=== PATIENT | male | born 1945 | race Caucasian/White ===

== ENCOUNTER 2024-08-18 14:49 | Inpatient (IN) | payer OTHER ==
[~2024-08-18] VITALS: Ht 167.6 cm; Wt 51.3 kg
[2024-08-18 15:44] LABS: BASOPHILS % (AUTO) 0.4 % (0.0-2.0); EOSINOPHILS % (AUTO) 1.5 % (0.0-6.0); HEMATOCRIT 31 % (39-51); HEMOGLOBIN 10.4 g/dL (13.5-17.5); LYMPHOCYTES # (AUTO) 1.2 K/uL (0.8-4.8); MEAN CORPUSCULAR HEMOGLOBIN 31 PG (26.0-33.0); MEAN CORPUSCULAR HGB CONC 33 g/dl (31.0-36.0); MEAN CORPUSCULAR VOLUME 93 fL (80-96); MONOCYTES # (AUTO) 0.6 K/uL (0.1-1.30); MONOCYTES % (AUTO) 7.5 % (2.0-12.0); NEUTROPHILS % (AUTO) 75.6 % (43.0-81.0); PLATELET COUNT (AUTO) 281 K/uL (150-450); RED BLOOD CELL COUNT(AUTO) 3.39 MIL/uL (4.5-6.0)
[2024-08-18 15:45] LABS: EOSINOPHILS # (AUTO) 0.1 K/uL (0.0-0.7)
[2024-08-18 16:00] LABS: APPEARANCE,URINE TURBID (CLEAR); BILIRUBIN,URINE NEGATIVE (NEGATIVE); BLOOD, URINE 1+ Ery/uL (NEGATIVE); COLOR,URINE YELLOW (YELLOW); KETONES,URINE NEGATIVE (NEGATIVE); LEUKOCYTE ESTERASE ,URINE 3+ (NEGATIVE); NITRITE, URINE NEGATIVE (NEGATIVE); PH,URINE 8.5 (5.0-8.0); PROTEIN,URINE 2+ mg/dl (NEGATIVE); UGLUCOSE NEGATIVE (NEGATIVE); UROBILINOGEN,URINE 0.2 EU/dL (0.2)
[2024-08-18 16:01] LABS: CARBON DIOXIDE 34 mmol/L (21-32); CHLORIDE 105 mmol/L (98-107); CREATININE 1.4 mg/dL (0.6-1.3); GLUCOSE 105 mg/dL (74-106); POTASSIUM 4.3 mmol/L (3.5-5.1); SODIUM SERUM 140 mmol/L (136-145); UREA NITROGEN, BLOOD 45 mg/dL (7-18)
[2024-08-18 16:06] LABS: ACETAMINOPHEN <10 ug/ml (10-30); SALICYLATE 1.9 mg/dL (2.8-20.0)
[2024-08-18 16:16] LABS: AMPHETAMINE, URINE NEGATIVE (NEGATIVE); BARBITURATE, URINE NEGATIVE (NEGATIVE); BENZODIAZEPINE, URINE NEGATIVE (NEGATIVE); CANNABINOID, URINE NEGATIVE (NEGATIVE); COCCAINE, URINE NEGATIVE (NEGATIVE); OPIATE, URINE NEGATIVE (NEGATIVE); PHENCYCLIDINE SCREEN,URINE NEGATIVE (NEGATIVE)
[2024-08-18 16:22] LABS: ADD URINE CULTURE YES; BACTERIA,URINE 2+ /HPF (None Seen); SQUAMOUS EPITHELIAL CELL,UR None Seen /HPF (None Seen); TRIPLE PHOSPHATE CRYSTAL,UR Few /HPF (None Seen)
[2024-08-18] MEDS ORDERED: ASCO-352 PO (18:07)
[2024-08-18] MEDS ORDERED: CHOL100043 PO (18:07)
[2024-08-18] MEDS ORDERED: FOLI0.8T3 PO (18:07)
[2024-08-18] MEDS ORDERED: SENN8.6T19 PO (18:07)
[2024-08-18] MEDS ORDERED: TIOT18CA3 IH (18:07)
[2024-08-18] MEDS ORDERED: DOCU100C36 PO (18:07)
[2024-08-18] MEDS ORDERED: METH10SO PO (18:07)
[2024-08-18] MEDS ORDERED: NA P133E RC (18:07)
[2024-08-18] MEDS ORDERED: MULT-213 PO (18:07)
[2024-08-18] MEDS ORDERED: AMIN30LI2 PO (18:07)
[2024-08-18] MEDS ORDERED: BOOST VHC PO (18:07)
[2024-08-18] MEDS ORDERED: ACET325T53 PO (18:07)
[2024-08-18] MEDS ORDERED: MAGN400O6 PO (18:07)
[2024-08-18] MEDS ORDERED: BISA10SU11 RC (18:07)
[2024-08-18] MEDS ORDERED: ALBU90AE IH (18:07)
[2024-08-18] MEDS ORDERED: POLY17PO4 PO (18:07)
[2024-08-18] MEDS ORDERED: ONDANSETRON HCL/PF 4 MG/2 ML VIAL IVP PRN (22:00)
[2024-08-18] MEDS ORDERED: MAG HYDROX/AL HYDROX/SIMETH 30 ML UDC PO PRN (22:00)
[2024-08-19 02:25] VITALS: BP 141/89; TEMP 98.2; O2SAT 99
[2024-08-19] MEDS: SENNOSIDES 8.6 MG TABLET PO SCH (04:07)
[2024-08-19] MEDS ORDERED: CEFTRIAXONE 1GM BAG (ER ONLY) 50 ML IV ONE (04:27)
[2024-08-19] MEDS: CEFTRIAXONE 1 G in IV D5W 50 ML IV SCH (05:30)
[2024-08-19 08:00] VITALS: BP 124/86; TEMP 98.4; O2SAT 99
[2024-08-19] MEDS: PANTOPRAZOLE 40 MG TABLET.DR PO SCH (08:29)
[2024-08-19] MEDS: POLYETHYLENE GLYCOL 3350 17 GM POWD.PACK PO SCH (09:16)
[2024-08-19] MEDS: MULTIVIT W/MINERALS 1 TAB TABLET PO SCH (09:16)
[2024-08-19] MEDS: FOLIC ACID 1 MG TABLET PO SCH (09:16)
[2024-08-19] MEDS: DOCUSATE SODIUM 100 MG CAPSULE PO SCH (09:16)
[2024-08-19] MEDS: CHOLECALCIFEROL 1,000 UNIT TABLET (VIT D3) PO SCH (09:17)
[2024-08-19] MEDS: ASCORBIC ACID 500 MG TABLET PO SCH (09:17)
[2024-08-19] MEDS: PROSOURCE / PROSTAT (PYXIS) 30 ML UDC PO SCH (09:20)
[2024-08-19] MEDS: ACETAMINOPHEN 325 MG TABLET PO PRN (10:03)
[2024-08-19] MEDS: LORAZEPAM INJ 2 MG/ML VIAL IV PRN (15:21)
[2024-08-19 16:00] VITALS: BP 120/75; TEMP 98.4; O2SAT 99
[2024-08-19 16:37] LABS: BASOPHILS % (AUTO) 0.5 % (0.0-2.0); EOSINOPHILS # (AUTO) 0.1 K/uL (0.0-0.7); EOSINOPHILS % (AUTO) 1.1 % (0.0-6.0); HEMATOCRIT 32 % (39-51); HEMOGLOBIN 10.5 g/dL (13.5-17.5); LYMPHOCYTES # (AUTO) 1.2 K/uL (0.8-4.8); MEAN CORPUSCULAR HEMOGLOBIN 31 PG (26.0-33.0); MEAN CORPUSCULAR HGB CONC 33 g/dl (31.0-36.0); MEAN CORPUSCULAR VOLUME 94 fL (80-96); MONOCYTES # (AUTO) 0.6 K/uL (0.1-1.30); MONOCYTES % (AUTO) 7.1 % (2.0-12.0); NEUTROPHILS # (AUTO) 6.5 K/uL (1.8-8.9); NEUTROPHILS % (AUTO) 77.3 % (43.0-81.0); RED BLOOD CELL COUNT(AUTO) 3.39 MIL/uL (4.5-6.0); RED CELL DISTRIBUTION WIDTH 15.6 % (11.5-15.0); WHITE BLOOD COUNT (AUTO) 8.4 K/uL (4.3-11.0)
[2024-08-19 16:43] LABS: CALCIUM, SERUM 8.6 mg/dL (8.5-10.1); CREATININE 1.3 mg/dL (0.6-1.3); MAGNESIUM 2.3 mg/dL (1.8-2.4); PHOSPHORUS 4.1 mg/dL (2.5-4.9); POTASSIUM 4.4 mmol/L (3.5-5.1)
[2024-08-19 17:02] LABS: PLATELET COUNT (AUTO) 265 K/uL (150-450)
[2024-08-19 17:52] LABS: ALANINE AMINOTRANSFERASE < 6 U/L (12-78); ALBUMIN 2.3 g/dL (3.4-5.0); ALKALINE PHOSPHATASE 56 U/L (46-116); ASPARTATE AMINOTRANSFERASE 14 U/L (15-37); BILIRUBIN,TOTAL 0.2 mg/dL (0.2-1.0); CALCIUM, SERUM 8.6 mg/dL (8.5-10.1); CARBON DIOXIDE 29 mmol/L (21-32); CHLORIDE 104 mmol/L (98-107); CREATININE 1.3 mg/dL (0.6-1.3); GLUCOSE 119 mg/dL (74-106); SODIUM SERUM 140 mmol/L (136-145); TOTAL PROTEIN, SERUM 7.3 g/dL (6.4-8.2); UREA NITROGEN, BLOOD 42 mg/dL (7-18)
[2024-08-19] MEDS: IPRATROPIUM NEB FS 0.5 MG/2.5 ML AMPUL.NEB NEB SCH (19:46)
[2024-08-19 19:47] VITALS: O2SAT 97
[2024-08-19 19:59] VITALS: O2SAT 99
[2024-08-19 20:00] VITALS: BP 137/80; TEMP 97.9; O2SAT 100
[2024-08-20] VITALS (11 sets, daily range): BP systolic 114–152; BP diastolic 73–89; TEMP 98–98.2; O2SAT 97–100
[2024-08-20] MEDS ORDERED: diphenhydrAMINE HCL 50 MG/ML VIAL IM PRN (08:00)
[2024-08-20] MEDS ORDERED: HALOPERIDOL LACTATE INJ 5 MG/ML VIAL IM PRN (08:00)
[2024-08-20] MEDS: METHADONE HCL 10 MG TABLET PO SCH (08:43)
[2024-08-20] MEDS: OLANZAPINE ZYDIS 5 MG TAB.RAPDIS PO SCH (08:45)
[2024-08-20 11:35] LABS: BASOPHILS % (AUTO) 0.3 % (0.0-2.0); EOSINOPHILS # (AUTO) 0.1 K/uL (0.0-0.7); EOSINOPHILS % (AUTO) 1.9 % (0.0-6.0); HEMATOCRIT 35 % (39-51); HEMOGLOBIN 11.3 g/dL (13.5-17.5); LYMPHOCYTES # (AUTO) 1.3 K/uL (0.8-4.8); LYMPHOCYTES % (AUTO) 16.6 % (20.0-44.0); MEAN CORPUSCULAR HEMOGLOBIN 30 PG (26.0-33.0); MEAN CORPUSCULAR HGB CONC 33 g/dl (31.0-36.0); MEAN CORPUSCULAR VOLUME 93 fL (80-96); MONOCYTES # (AUTO) 0.6 K/uL (0.1-1.30); MONOCYTES % (AUTO) 8.2 % (2.0-12.0); NEUTROPHILS # (AUTO) 5.5 K/uL (1.8-8.9); PLATELET COUNT (AUTO) 280 K/uL (150-450); RED BLOOD CELL COUNT(AUTO) 3.73 MIL/uL (4.5-6.0); RED CELL DISTRIBUTION WIDTH 14.8 % (11.5-15.0); WHITE BLOOD COUNT (AUTO) 7.6 K/uL (4.3-11.0)
[2024-08-20 12:01] LABS: CALCIUM, SERUM 8.8 mg/dL (8.5-10.1); CREATININE 1.2 mg/dL (0.6-1.3); POTASSIUM 3.7 mmol/L (3.5-5.1)
[2024-08-20 12:04] LABS: MAGNESIUM 2.3 mg/dL (1.8-2.4); PHOSPHORUS 3.1 mg/dL (2.5-4.9)
[2024-08-20] MEDS ORDERED: MUPIROCIN OINT 2% 22 GM TUBE TP SCH (21:00)
[2024-08-20] MEDS: MUPIROCIN OINT 2% 22 GM TUBE NS SCH (22:04)
[2024-08-21] VITALS (10 sets, daily range): BP systolic 108–160; BP diastolic 76–88; TEMP 97.8–98.5; O2SAT 93–100
[2024-08-21] MEDS: Z GUARD REMEDY 4 OZ OINT TP PRN (10:03)
[2024-08-21 11:06] LABS: PTH, INTACT 14 pg/mL (15-65)
[2024-08-21 13:11] LABS: CREATININE 1.2 mg/dL (0.6-1.3); POTASSIUM 4.3 mmol/L (3.5-5.1)
[2024-08-21 13:36] LABS: BASOPHILS % (AUTO) 0.4 % (0.0-2.0); EOSINOPHILS # (AUTO) 0.2 K/uL (0.0-0.7); EOSINOPHILS % (AUTO) 2.4 % (0.0-6.0); HEMATOCRIT 33 % (39-51); HEMOGLOBIN 10.9 g/dL (13.5-17.5); LYMPHOCYTES # (AUTO) 1.5 K/uL (0.8-4.8); LYMPHOCYTES % (AUTO) 20.2 % (20.0-44.0); MEAN CORPUSCULAR HEMOGLOBIN 31 PG (26.0-33.0); MEAN CORPUSCULAR HGB CONC 34 g/dl (31.0-36.0); MEAN CORPUSCULAR VOLUME 91 fL (80-96); MONOCYTES # (AUTO) 0.7 K/uL (0.1-1.30); MONOCYTES % (AUTO) 8.7 % (2.0-12.0); NEUTROPHILS # (AUTO) 5.2 K/uL (1.8-8.9); NEUTROPHILS % (AUTO) 68.3 % (43.0-81.0); PLATELET COUNT (AUTO) 293 K/uL (150-450); RED BLOOD CELL COUNT(AUTO) 3.57 MIL/uL (4.5-6.0); WHITE BLOOD COUNT (AUTO) 7.6 K/uL (4.3-11.0)
[2024-08-21] MEDS ORDERED: RISPERIDONE 0.25 MG TAB.RAPDIS PO SCH (17:00)
[2024-08-22] VITALS (12 sets, daily range): BP systolic 95–128; BP diastolic 58–77; TEMP 97.3–98.2; O2SAT 92–98
[2024-08-22] MEDS: risperiDONE 1 MG TABLET PO SCH (08:17)
[2024-08-23] VITALS (7 sets, daily range): BP systolic 110–134; BP diastolic 65–86; TEMP 97.9–98.6; O2SAT 96–99
[2024-08-23 07:06] LABS: BASOPHILS % (AUTO) 0.3 % (0.0-2.0); EOSINOPHILS # (AUTO) 0.2 K/uL (0.0-0.7); HEMATOCRIT 32 % (39-51); HEMOGLOBIN 10.6 g/dL (13.5-17.5); LYMPHOCYTES # (AUTO) 1.6 K/uL (0.8-4.8); LYMPHOCYTES % (AUTO) 18.6 % (20.0-44.0); MEAN CORPUSCULAR HEMOGLOBIN 31 PG (26.0-33.0); MEAN CORPUSCULAR HGB CONC 34 g/dl (31.0-36.0); MEAN CORPUSCULAR VOLUME 93 fL (80-96); MONOCYTES # (AUTO) 0.7 K/uL (0.1-1.30); MONOCYTES % (AUTO) 8.1 % (2.0-12.0); NEUTROPHILS # (AUTO) 6.1 K/uL (1.8-8.9); PLATELET COUNT (AUTO) 239 K/uL (150-450); RED CELL DISTRIBUTION WIDTH 15.5 % (11.5-15.0); WHITE BLOOD COUNT (AUTO) 8.6 K/uL (4.3-11.0)
[2024-08-23 07:56] LABS: CALCIUM, SERUM 8.8 mg/dL (8.5-10.1); CREATININE 1.4 mg/dL (0.6-1.3); POTASSIUM 4.2 mmol/L (3.5-5.1)
[2024-08-23] MEDS: CIPROFLOXACIN IV RTU 400 MG in PREMIX 1 EA IV SCH (09:57)
[2024-08-23] MEDS ORDERED: IOHEXOL-300 100 ML VIAL IV ONE (11:05)
[2024-08-23] MEDS ORDERED: CT SWABBABLE VALVE TRANS SET 1 EA INFUS.SET MC ONE (11:06)
[2024-08-23] MEDS ORDERED: IV NS 0.9% 250 ML IV ONE (11:06)
[2024-08-23] MEDS ORDERED: CIPR500T5 PO (14:58)
[2024-08-23] MEDS: MAGNESIUM HYDROXIDE 30 ML UDC PO PRN (20:43)
[2024-08-24 04:00] VITALS: BP 125/69; TEMP 98.2; O2SAT 97
[2024-08-24 06:52] LABS: BASOPHILS % (AUTO) 0.2 % (0.0-2.0); EOSINOPHILS # (AUTO) 0.2 K/uL (0.0-0.7); HEMATOCRIT 31 % (39-51); HEMOGLOBIN 10.3 g/dL (13.5-17.5); LYMPHOCYTES # (AUTO) 1.2 K/uL (0.8-4.8); LYMPHOCYTES % (AUTO) 15.6 % (20.0-44.0); MEAN CORPUSCULAR HEMOGLOBIN 31 PG (26.0-33.0); MEAN CORPUSCULAR HGB CONC 33 g/dl (31.0-36.0); MEAN CORPUSCULAR VOLUME 93 fL (80-96); MONOCYTES # (AUTO) 0.6 K/uL (0.1-1.30); MONOCYTES % (AUTO) 7.5 % (2.0-12.0); NEUTROPHILS % (AUTO) 74.7 % (43.0-81.0); PLATELET COUNT (AUTO) 256 K/uL (150-450); RED BLOOD CELL COUNT(AUTO) 3.35 MIL/uL (4.5-6.0)
[2024-08-24 07:05] LABS: CALCIUM, SERUM 8.9 mg/dL (8.5-10.1); CREATININE 1.3 mg/dL (0.6-1.3); POTASSIUM 4.1 mmol/L (3.5-5.1)
[2024-08-24 08:00] VITALS: BP 132/73; TEMP 97.9; O2SAT 98
[2024-08-24 16:00] VITALS: BP 119/79; TEMP 97.8; O2SAT 96
[2024-08-24 20:00] VITALS: BP 142/81; TEMP 97.7; O2SAT 94
[2024-08-25] VITALS (8 sets, daily range): BP systolic 106–134; BP diastolic 63–76; TEMP 97.7–98.6; O2SAT 94–99
[2024-08-25 08:10] LABS: *SPE A/G RATIO 0.6 (0.7-1.7); *SPE ALBUMIN 2.5 g/dL (2.9-4.4); *SPE ALPHA-1-GLOBULIN 0.3 g/dL (0.0-0.4); *SPE ALPHA-2-GLOBULIN 0.8 g/dL (0.4-1.0); *SPE BETA GLOBULIN 0.9 g/dL (0.7-1.3); *SPE GLOBULIN, TOTAL 4.2 g/dL (2.2-3.9); *SPE M-SPIKE Not Observed g/dL (Not Observed); *SPE PROTEIN TOTAL 6.7 g/dL (6.0-8.5); *SPEGAMMA GLOBULIN 2.1 g/dL (0.4-1.8)
[2024-08-26 04:00] VITALS: BP 110/71; TEMP 98.1; O2SAT 97
[2024-08-26 08:00] VITALS: BP 110/87; TEMP 97.7; O2SAT 98
[2024-08-26 16:00] VITALS: BP 112/82; TEMP 97; O2SAT 99
[2024-08-26] MEDS: CIPROFLOXACIN HCL 500 MG TABLET PO SCH (17:23)
[2024-08-26 20:00] VITALS: BP 100/82; TEMP 98.1; O2SAT 99
[2024-08-26 20:10] VITALS: O2SAT 95
[2024-08-27] VITALS (12 sets, daily range): BP systolic 99–138; BP diastolic 67–86; TEMP 97.9–98.2; O2SAT 93–100
[2024-08-27 06:48] LABS: BASOPHILS % (AUTO) 0.3 % (0.0-2.0); EOSINOPHILS # (AUTO) 0.2 K/uL (0.0-0.7); EOSINOPHILS % (AUTO) 2.4 % (0.0-6.0); HEMATOCRIT 29 % (39-51); HEMOGLOBIN 9.7 g/dL (13.5-17.5); LYMPHOCYTES # (AUTO) 1.7 K/uL (0.8-4.8); LYMPHOCYTES % (AUTO) 22.2 % (20.0-44.0); MEAN CORPUSCULAR HEMOGLOBIN 31 PG (26.0-33.0); MEAN CORPUSCULAR HGB CONC 34 g/dl (31.0-36.0); MEAN CORPUSCULAR VOLUME 91 fL (80-96); MONOCYTES # (AUTO) 0.6 K/uL (0.1-1.30); MONOCYTES % (AUTO) 8.5 % (2.0-12.0); NEUTROPHILS % (AUTO) 66.6 % (43.0-81.0); PLATELET COUNT (AUTO) 232 K/uL (150-450); RED BLOOD CELL COUNT(AUTO) 3.14 MIL/uL (4.5-6.0); RED CELL DISTRIBUTION WIDTH 15.2 % (11.5-15.0); WHITE BLOOD COUNT (AUTO) 7.5 K/uL (4.3-11.0)
[2024-08-27 06:52] LABS: ALBUMIN 2.1 g/dL (3.4-5.0); BILIRUBIN,TOTAL 0.2 mg/dL (0.2-1.0); CALCIUM, SERUM 8.3 mg/dL (8.5-10.1); CREATININE 1.2 mg/dL (0.6-1.3); MAGNESIUM 2.2 mg/dL (1.8-2.4); PHOSPHORUS 3.2 mg/dL (2.5-4.9); TOTAL PROTEIN, SERUM 6.3 g/dL (6.4-8.2)
[2024-08-27] MEDS: ENSURE ENLIVE CHOC 237 ML CAN PO SCH (08:00)
[2024-08-28] VITALS (13 sets, daily range): BP systolic 108–128; BP diastolic 73–85; TEMP 97.5–98.2; O2SAT 94–99
[2024-08-29] VITALS (11 sets, daily range): BP systolic 100–133; BP diastolic 68–74; TEMP 97.7–98.6; O2SAT 94–99
[2024-08-29 06:40] LABS: CALCIUM, SERUM 8.8 mg/dL (8.5-10.1); CREATININE 1.1 mg/dL (0.6-1.3); POTASSIUM 4.3 mmol/L (3.5-5.1)
[2024-08-30] VITALS (8 sets, daily range): BP systolic 118–139; BP diastolic 65–78; TEMP 98.1–98.6; O2SAT 94–100
[2024-08-30 08:28] LABS: CALCIUM, SERUM 8.6 mg/dL (8.5-10.1); CREATININE 1.1 mg/dL (0.6-1.3); POTASSIUM 4.5 mmol/L (3.5-5.1)
[2024-08-31] VITALS (10 sets, daily range): BP systolic 103–120; BP diastolic 69–80; TEMP 96.6–98.8; O2SAT 94–99
== END 2024-08-31 20:10 | disposition home health service (06) | DRG 689 ==
LOC: ER 15:30 → MEDSG1 08-19 01:38 → TELE1 08-20 09:40 → MEDSG1 08-21 06:10
PROVIDERS: ADMIT Nurse Practitioner Family; ATTEND Nurse Practitioner Family
DX: N13.6 Pyonephrosis (principal); G93.41 Metabolic encephalopathy; F03.94 Unspecified dementia, unspecified severity, with anxiety; R64 Cachexia; F03.918 Unspecified dementia, unspecified severity, with other behavioral disturbance; F05 Delirium due to known physiological condition; N17.0 Acute kidney failure with tubular necrosis; D63.8 Anemia in other chronic diseases classified elsewhere; J44.9 Chronic obstructive pulmonary disease, unspecified; I12.9 Hypertensive chronic kidney disease with stage 1 through stage 4 chronic kidney disease, or unspecified chronic kidney disease; M89.8X9 Other specified disorders of bone, unspecified site; N18.9 Chronic kidney disease, unspecified; R62.7 Adult failure to thrive; R53.1 Weakness; Z79.51 Long term (current) use of inhaled steroids; Z79.899 Other long term (current) drug therapy; G89.29 Other chronic pain; F29 Unspecified psychosis not due to a substance or known physiological condition; E86.9 Volume depletion, unspecified; Z79.891 Long term (current) use of opiate analgesic; F41.9 Anxiety disorder, unspecified; F17.200 Nicotine dependence, unspecified, uncomplicated; K59.00 Constipation, unspecified; R22.0 Localized swelling, mass and lump, head; B96.4 Proteus (mirabilis) (morganii) as the cause of diseases classified elsewhere; N13.9 Obstructive and reflux uropathy, unspecified
CPT/HCPCS: 36415; 70450-TC; 74178; 76770-TC; 80048-TC; 80053-TC; 81001; 82550-TC; 83735-TC; 83970; 84100-TC; 84155; 84165; 84443-TC; 84484-TC; 85025-TC; 87081-TC; 87086-TC; 94760-TC; 94762-TC; 94799-TC; 97116-TC; 97530-TC; A4216; A4223; G0378; J0696; J0744; J1630; J2060; J7040; J7042; J7050; J7060; Q9967